=== PATIENT | female | born 1990 | race Caucasian/White ===

== ENCOUNTER 2018-08-12 19:16 | Emergency (ER) | payer MEDICAID ==
[2018-08-12] MEDS ORDERED: Sodium Chloride 0.9% 10 ML Syringe FLUSH PRN (19:39)
[2018-08-12] MEDS ORDERED: Promethazine 25 MG in Sodium Chloride 0.9% 50 ML IV ONE (19:40)
[2018-08-12] MEDS ORDERED: Vitamin B6-pyridOXINE 100 MG/ML SDV IV ONE (19:42)
[2018-08-12] MEDS: Sodium Chloride 0.9% 1,000 ML IV SCH ×2 (20:21→21:44)
[2018-08-12] MEDS ORDERED: cefTRIAXone 1 GM Vial IVPUSH ONE (21:42)
[2018-08-12] MEDS ORDERED: Ondansetron 4 MG/2 ML SDV IVPUSH ONE (21:42)
--- NOTE | 2018-08-12 22:19 | EDM.PDOC ---
ED HPI GENERAL MEDICAL PROBLEM - General Chief Complaint: Gastrointestinal Problem Stated Complaint: VOMITING Time Seen by Provider: 08/12/18 21:10 Source of Information: Reports: Patient History Limitations: Reports: No Limitations - History of Present Illness INITIAL COMMENTS - FREE TEXT/NARRATIVE: 27-year-old female with history of hyperemesis gravidarum with all of her pregnancies. She is a 6 para 5 and is approximately 18 weeks with a due date of 01/15/2019 who reports that she recently moved here from [place] (week and a half ago) and she ran out of her Zofran. She states she has vomiting and nausea every day, however, she ran out of her Zofran yesterday and today she has been unable to stop vomiting. She reports she's had vomiting 10- 15. Is been nonbilious. She's had no diarrhea. She has had no dysuria. She feels somewhat dizzy and lightheaded. She states that this is happening multiple times during this and her other pregnancies and "I just need some IV fluids and some Zofran and I'll be good to go" she's had no fevers. She has had intermittent lower abdominal cramping that she has had quite some time. She has no pain now. She rates her pain as a 0/10. She has had no vaginal bleeding or vaginal discharge. There are no other associated signs or symptoms. There are no other modifying factors. 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 Medication(s) (Took antinausea suppositories with no relief) Abdomen Pain Score (Numeric/FACES): 4 - Related Data Allergies Allergy/AdvReac Type Severity Reaction Status Date / Time No Known Allergies Allergy Verified 08/12/18 20:02 Home Meds: Home Meds Cephalexin [Keflex] 500 mg PO TID 7 Days #21 capsule 08/12/18 [Rx] Ondansetron [Zofran ODT] 4 mg PO DAILY 08/12/18 [History] Ondansetron [Zofran ODT] 4 mg PO Q6H PRN #20 tab.dis 08/12/18 [Rx] Pnv No.95/Ferrous Fum/Folic AC [ Caplet] 1 each PO DAILY 08/12/18 [ History] Pyridoxine HCl (Vitamin B6) [Pyridoxine HCl] 50 mg PO BID #60 tablet 08/12/18 [ Rx] Past Medical History [employer] History: Reports: Hyperemesis, (18 weeks with an EDC of 2018) - Infectious Disease History Infectious Disease History: Reports: Hepatitis C - Past Surgical History HEENT Surgical History: Reports: Tonsillectomy GI Surgical History: Reports: Appendectomy, Cholecystectomy Social & Family History - Tobacco Use Smoking Status *Q: Current Every Day Smoker Years of Tobacco use: 10 Packs/Tins Daily: 0.5 Second Hand Smoke Exposure: No - Caffeine Use Caffeine Use: Reports: Soda - Alcohol Use Alcohol Use History: No - Recreational Drug Use Recreational Drug Use: Yes Drug Use in Last 12 Months: No - Living Situation & Occupation Living situation: Reports: with Significant Other Social History Comment: Recently moved here from [place]. Has not established with an OB yet. ED ROS GENERAL - Review of Systems Review Of Systems: See Below Constitutional: Reports: No Symptoms HEENT: Reports: Other (Primary) Respiratory: Reports: No Symptoms Cardiovascular: Reports: No Symptoms GI/Abdominal: Reports: Nausea, Vomiting : Reports: No Symptoms Musculoskeletal: Reports: No Symptoms Neurological: Reports: No Symptoms Hematologic/Lymphatic: Reports: No Symptoms Immunologic: Reports: No Symptoms ED EXAM, GENERAL - Physical Exam Exam: See Below Exam Limited By: No Limitations General Appearance: Alert, WD/WN, Mild Distress Eye Exam: Bilateral Eye: EOMI, Normal Inspection, PERRL Ears: Normal External Exam Ear Exam: Bilateral Ear: Auricle Normal Nose: Normal Inspection, Normal Mucosa, No Blood Throat/Mouth: Normal Voice, No Airway Compromise, Other (Dry mucous membranes) Head: Atraumatic, Normocephalic Neck: Normal Inspection, Supple, Non-Tender, Full Range of Motion Respiratory/Chest: No Respiratory Distress, Lungs Clear, Normal Breath Sounds, No Accessory Muscle Use, Chest Non-Tender Cardiovascular: Normal Peripheral Pulses, Regular Rate, Rhythm, No JVD Peripheral Pulses: 2+: Radial (L), Radial (R), Dorsalis Pedis (L), Dorsalis Pedis (R) GI/Abdominal: Normal Bowel Sounds, Soft, Non-Tender, No Mass, Other (Gravid; heart tones 140) Back Exam: Normal Inspection, Full Range of Motion Extremities: Normal Inspection, Normal Range of Motion, Non-Tender, No Pedal Edema, Normal Capillary Refill Neurological: Alert, Oriented, CN II-XII Intact, Normal Cognition, Normal Gait, No Motor/Sensory Deficits Skin Exam: Warm, Dry, Intact, Normal Color, No Rash Course - Vital Signs Last Recorded V/S: Last Vital Signs Temp 36.8 C 08/12/18 20:34 Pulse 71 08/12/18 20:34 Resp 18 08/12/18 20:34 BP 104/55 L 08/12/18 20:34 Pulse Ox 99 08/12/18 20:34 - Orders/Labs/Meds Orders: Active Orders 24 hr Category Date Time Status CULTURE URINE [RM] Stat Lab 08/12/18 21:18 Received Sodium Chloride 0.9% [Saline Flush] Med 08/12/18 19:39 Active 10 ml FLUSH ASDIRECTED PRN Peripheral IV Insertion Adult [OM.PC] Routine Oth 08/12/18 19:39 Ordered Medication Orders Sodium Chloride (Saline Flush) 10 ml FLUSH ASDIRECTED PRN PRN Reason: Keep Vein Open Labs: Laboratory Tests 08/12/18 08/12/18 08/12/18 Range/Units 19:55 19:55 21:18 WBC 9.2 (4.5-12.0) X10-3/uL RBC 4.61 (3.23-5.20) x10(6)uL Hgb 14.0 (11.5-15.5) g/dL Hct 40.4 (30.0-51.3) % MCV 87.7 (80-96) fL MCH 30.3 (27.7-33.6) pg MCHC 34.6 (32.2-35.4) g/dL RDW 12.3 (11.5-15.5) % Plt Count 232 (125-369) X10(3)uL MPV 8.6 (7.4-10.4) fL Neut % (Auto) 66.6 (46-82) % Lymph % (Auto) 22.5 (13-37) % Sheridan % (Auto) 2.7 L (4-12) % Eos % (Auto) 8 H (1.0-5.0) % Baso % (Auto) 1 (0-2) % Neut # (Auto) 6.2 (1.6-8.3) # Lymph # (Auto) 2.1 (0.6-5.0) # Sheridan # (Auto) 0.2 (0.0-1.3) # Eos # (Auto) 0.7 (0.0-0.8) # Baso # (Auto) 0.0 (0.0-0.2) # Sodium 138 (135-145) mmol/L Potassium 3.9 (3.5-5.3) mmol/L Chloride 102 (100-110) mmol/L Carbon Dioxide 26 (21-32) mmol/L BUN 9 (7-18) mg/dL Creatinine 0.6 (0.55-1.02) mg/dL Est Cr Clr Drug Dosing TNP Estimated GFR (MDRD) > 60 (>60) BUN/Creatinine Ratio 15.0 (9-20) Glucose 77 L (80-116) mg/dL Calcium 9.4 (8.6-10.2) mg/dL Magnesium 1.8 (1.8-2.5) mg/dL Total Bilirubin 0.3 (0.1-1.3) mg/dL AST 12 (5-25) IU/L ALT 19 (12-36) U/L Alkaline Phosphatase 45 L (56-112) IU/L Total Protein 7.8 (6.0-8.0) g/dL Albumin 3.4 L (3.5-5.2) g/dL Globulin 4.4 g/dL Albumin/Globulin Ratio 0.8 Urine Color Yellow (YELLOW) Urine Appearance Clear (CLEAR) Urine pH 8.0 H (5.0-6.5) Ur Specific Lawrence 1.015 (1.010-1.025) Urine Protein Negative (NEGATIVE) mg/dL Urine Glucose (UA) Normal (NORMAL) mg/dL Urine Ketones 50 H (NEGATIVE) mg/dL Urine Occult Blood Negative (NEGATIVE) Urine Nitrite Negative (NEGATIVE) Urine Bilirubin Negative (NEGATIVE) Urine Urobilinogen Normal (NEGATIVE) mg/dL Ur Leukocyte Esterase Large H (NEGATIVE) Urine RBC 0-5 (0-5) Urine WBC 5-10 H (0-5) Ur Squamous Epith Cells Few H (NS,R,O) Urine Bacteria Few H (NS) Meds: Medications Generic Name Dose Route Start Last Admin Trade Name Freq PRN Reason Stop Dose Admin Sodium Chloride 10 ml 08/12/18 19:39 Saline Flush FLUSH ASDIRECTED PRN Keep Vein Open Discontinued Medications Generic Name Dose Route Start Last Admin Trade Name Freq PRN Reason Stop Dose Admin Ceftriaxone Sodium 1 gm 08/12/18 21:42 08/12/18 22:22 Rocephin IVPUSH 08/12/18 21:43 1 gm ONETIME ONE Administration Promethazine HCl 25 mg/ Sodium 51 mls @ 200 mls/hr 08/12/18 19:40 08/12/18 20 :22 Chloride IV 08/12/18 19:55 200 mls/hr ONETIME ONE Administration Sodium Chloride 1,000 mls @ 999 mls/hr 08/12/18 19:45 08/12/18 21:44 Normal Saline IV 999 mls/hr .BOLUS AMMY Administration Ondansetron HCl 4 mg 08/12/18 21:42 08/12/18 22:22 Zofran IVPUSH 08/12/18 21:43 4 mg ONETIME ONE Administration Pyridoxine HCl 50 mg 08/12/18 19:42 08/12/18 20:37 Vitamin B6 IV 08/12/18 19:43 50 mg ONETIME ONE Administration - Re-Assessments/Exams Free Text/Narrative Re-Assessment/Exam: 08/12/18 22:52: Patient has received 2 L of normal saline IV. She has also received Phenergan IV and a Zofran IV (she has taken this with every one of her pregnancies and has never had a problem with it and she has no problems taking this medication while she is ). She has been able to drink liquids and although nauseated, has had no further emesis. She still. Lightheaded but she does feel much improved from previous and she states she is actually hungry. She does have what appears to be urinary tract infection and I have treated her with Rocephin 1 g IV and I will place her on Keflex 500 mg 3 times a day. She is to establish with an OB. I will give her a prescription for Zofran. The patient was also given vitamin B6 IV and I will place her on that daily to see if this will help with her hyperemesis. Departure - Departure Time of Disposition: 23:00 Disposition: Home, Self-Care 01 Condition: Good (Improved) Clinical Impression: Hyperemesis gravidarum, Dehydration UTI (urinary tract infection) Qualifiers: Urinary tract infection type: site unspecified Hematuria presence: without hematuria Qualified Code(s): N39.0 - Urinary tract infection, site not specified - Discharge Information Prescriptions: Cephalexin [Keflex] 500 mg PO TID 7 Days #21 capsule Ondansetron [Zofran ODT] 4 mg PO Q6H PRN #20 tab.dis PRN Reason: Nausea/Vomiting Pyridoxine HCl (Vitamin B6) [Pyridoxine HCl] 50 mg PO BID #60 tablet Instructions: Urinary Tract Infection, Adult, [id number], Hyperemesis Gravidarum, and Urinary Tract Infection, Dehydration, Adult Referrals: PCP,None [Primary Care Provider] - Forms: ED Department Discharge Additional Instructions: Your blood tests were reassuring normal. Your urine test showed some evidence of infection. Rest. Drink plenty of fluids. Medication as prescribed (Keflex 500 mg, Zofran 4 mg ODT, pyridoxine/vitamin B6). Establish with an OB in this area as soon as she can. Back to the emergency department for unrelenting vomiting, vaginal bleeding, worsening abdominal pain, fever or any other concerning sign or symptom. - My Orders Last 24 Hours: My Active Orders 08/12/18 19:39 Sodium Chloride 0.9% [Saline Flush] 10 ml FLUSH ASDIRECTED PRN Peripheral IV Insertion Adult [OM.PC] Routine 08/12/18 21:18 CULTURE URINE [RM] Stat - Assessment/Plan Last 24 Hours: My Active Orders 08/12/18 19:39 Sodium Chloride 0.9% [Saline Flush] 10 ml FLUSH ASDIRECTED PRN Peripheral IV Insertion Adult [OM.PC] Routine 08/12/18 21:18 CULTURE URINE [RM] Stat
== END 2018-08-12 23:11 | disposition home or self-care (01) ==
LOC: FB.ED 19:16
DX: O21.0 Mild hyperemesis gravidarum (principal); Z3A.18 18 weeks gestation of pregnancy; O23.42 Unspecified infection of urinary tract in pregnancy, second trimester; O99.332 Smoking (tobacco) complicating pregnancy, second trimester; F17.210 Nicotine dependence, cigarettes, uncomplicated; Z79.899 Other long term (current) drug therapy
CPT/HCPCS: 36415; 80053; 81001; 83735; 85025; 87086; 96361; 96365; 96375; 99284; J0696; J2405; J2550; J3415; J7030; J7050